=== PATIENT | female | born 1995 | race Caucasian/White ===

== ENCOUNTER 2023-09-01 08:56 | Emergency (ER) | payer MEDICAID ==
[~2023-09-01] VITALS: Ht 167.6 cm; Wt 58.0 kg
[2023-09-01 09:12] VITALS: TEMP 97.9
[2023-09-01] MEDS ORDERED: normal saline 1000ml 1,000 ML IV ONE ×2 (10:00→12:25)
[2023-09-01 10:11] LABS: BASOPHILS # (AUTO) 0.3 X10'3 (0-0.2); EOSINOPHILS # (AUTO) 0.1 X10'3 (0-0.9); EOSINOPHILS % (AUTO) 0.5 % (0-6); HEMATOCRIT 42.7 % (35.0-45.0); HEMOGLOBIN 14.7 g/dl (12.0-16.0); LYMPHOCYTES # (AUTO) 0.8 X10'3 (1.1-4.8); MEAN CORPUSCULAR HEMOGLOBIN 32.2 PG (27.0-31.0); MEAN CORPUSCULAR HGB CONC 34.5 g/dL (33.0-36.5); MEAN CORPUSCULAR VOLUME 93.3 FL (78-98); MEAN PLATELET VOLUME 8.6 FL (7.4-10.4); MONOCYTES # (AUTO) 0.8 X10'3 (0-0.9); NEUTROPHILS # (AUTO) 11.5 X10'3 (1.8-7.7); NEUTROPHILS % (AUTO) 85.5 % (42-75); PLATELET COUNT 225 X10'3 (140-440); RED BLOOD COUNT 4.58 X10'6 (4.20-5.60); RED CELL DISTRIBUTION WIDTH 11.9 % (11.5-14.5); WHITE BLOOD COUNT 13.5 X10'3 (4.5-11.0)
[2023-09-01 10:25] LABS: ALANINE AMINOTRANSFERASE 52 U/L (12-78); ALKALINE PHOSPHATASE 48 IU/L (46-116); ANION GAP 8 (8-16); ASPARTATE AMINO TRANSFERASE 19 U/L (10-37); BILIRUBIN,TOTAL 0.8 MG/DL (0.1-1.0); BLOOD UREA NITROGEN 15 MG/DL (7-18); BUN/CREATININE RATIO 19.2 (10.0-20.0); CALCIUM 9.1 MG/DL (8.5-10.1); CHLORIDE 104 MMOL/L (99-107); CREATININE 0.78 MG/DL (0.40-0.90); GLUCOSE 85 MG/DL (70-104); POTASSIUM 3.5 MMOL/L (3.5-5.1); SODIUM 138 MMOL/L (135-145); TOTAL CARBON DIOXIDE 26.1 MMOL/L (24-32); eCRCL 97 ML/MIN; eGFR 87 ML/MIN
[2023-09-01 10:33] LABS: PRO BRAIN NATRIURETIC PEPTIDE 51 PG/ML (0-125)
[2023-09-01 11:28] LABS: D-DIMER 0.57 MG/L FEU (0-0.50)
[2023-09-01 11:39] LABS: FREE T4 (FREE THYROXINE) 1.19 NG/DL (0.73-1.40); THYROID STIMULATING HORMONE 0.98 ulU/ml (0.34-4.50)
[2023-09-01] MEDS ORDERED: iohexol 350MG/ML 100ml bottle IV ONE (13:48)
[2023-09-01 15:03] LABS: URINE HCG NEGATIVE (NEG)
[2023-09-01 15:12] LABS: BILIRUBIN,URINE NEGATIVE (Neg); CLARITY,URINE SLIGHTLY CLOUDY (Clear); COLOR,URINE YELLOW (Yellow); GLUCOSE, URINE NEGATIVE (Neg); KETONES,URINE 15 mg/dl (Neg); LEUKOCYTE ESTERASE ,URINE NEGATIVE (Neg); NITRITES, URINE NEGATIVE (Neg); OCCULT BLOOD,URINE SMALL (Neg); PROTEIN,URINE NEGATIVE (Neg); UROBILINOGEN,URINE 0.2 E.U/dL (0.2-1.0)
[2023-09-01 15:18] LABS: UA COLLECTION TYPE CLN CATCH MIDSTREAM
[2023-09-01 15:32] LABS: MUCUS STRANDS MANY /LPF (Neg); SQUAMOUS EPITHELIAL CELL,UR MANY /LPF (FEW)
[2023-09-01 15:33] LABS: HYALINE CASTS 0-3 /LPF (NEGATIVE)
[2023-09-01 15:34] LABS: BACTERIA,URINE 1+ /HPF (Neg); RBC,URINE 0-2 /HPF (0-2); WBC,URINE 0-4 /HPF (0-4)
[2023-09-01 15:35] LABS: TRANSITIONAL EPI CELLS,URINE FEW /HPF
--- NOTE | 2023-09-01 17:14 | NUR ---
PT RESTING QUIETLY IN NAD WITH VISITOR AT BS
[2023-09-01 17:48] VITALS: BP 101/68; PULSE 73; RESP 16; O2SAT 98
== END 2023-09-01 17:50 | disposition home or self-care (01) ==
LOC: ER 08:58
DX: R55 Syncope and collapse (principal); Z88.8 Allergy status to other drugs, medicaments and biological substances; Z88.1 Allergy status to other antibiotic agents; Z79.899 Other long term (current) drug therapy
CPT/HCPCS: 36415; 71045; 71275; 80053; 81001; 81025; 83880; 84439; 84443; 84484; 85025; 85379; 93005; 96360; 96361; 99285; J3490; J7030; Q9967